=== PATIENT | male | born 1955 | race Caucasian/White ===

== ENCOUNTER 2021-01-23 23:02 | Inpatient (IN) | payer OTHER, SELFPAY ==
[2021-01-24 01:24] VITALS: BMI 23.1
[2021-01-24] MEDS ORDERED: Acetaminophen 650 MG Suppository PR PRN (01:50)
[2021-01-24] MEDS ORDERED: Ondansetron PF 4 MG/2 ML Vial IVP PRN (01:50)
[2021-01-24] MEDS ORDERED: Acetaminophen 325 MG TAB PO PRN (01:50)
[2021-01-24] MEDS ORDERED: Ondansetron ODT 4 MG TAB PO PRN (01:50)
[2021-01-24] MEDS: Morphine 4 MG/ML VIAL SLOW IVP PRN ×4 (02:07→19:33)
[2021-01-24 05:27] LABS: #Basophils 0.1 thou/uL (0.0-0.2); #Eosinphils 0.3 thou/uL (0.0-0.7); #Lymphocytes 2.6 thou/uL (1.20-3.40); #Monocytes 0.7 thou/uL (0.11-0.59); #Neutrophils 6.6 thou/uL (1.40-6.50); %Basophils 0.7 % (0.0-1.0); %Eosinophils 3.3 % (0.0-10.0); %Lymphocytes 25.6 % (21.0-51.0); %Monocytes 6.9 % (0.0-10.0); %Neutrophils 63.6 % (42.0-75.0); Hemoglobin 12.9 g/dL (14.0-18.0); Mean Corpuscular Hemoglobin 31.5 pg (27.0-31.0); Mean Corpuscular Volume 95.5 fL (78.0-98.0); Mean Platelet Volume 6.6 fL (7.4-10.4); Platelet Count 334 thou/uL (130-400); RBC Distribution Width 11.3 % (11.5-14.5); Red Blood Cell (RBC) Count 4.08 mill/uL (4.70-6.10); White Blood Cell (WBC) Count 10.3 thou/uL (4.8-10.8)
[2021-01-24 05:51] LABS: Anion Gap 11 mmol/L (10-20); BUN (Urea Nitrogen) 9 mg/dL (8.4-25.7); Calc. Creatinine Clearance 100 mL/min (70-130); Calcium 9.3 mg/dL (7.8-10.44); Carbon Dioxide 22 mmol/L (23-31); Chloride 105 mmol/L (98-107); Glucose 84 mg/dL (80-115); Potassium 4.1 mmol/L (3.5-5.1); Sodium 134 mmol/L (136-145)
[2021-01-24] MEDS ORDERED: Nitroglycerin 0.4 MG TAB (25 Tab Bottle) SL PRN (08:23)
[2021-01-24] MEDS: Tamsulosin HCl 0.4 MG CAP PO SCH (08:56)
[2021-01-24] MEDS: Aspirin Chewable 81 MG TAB PO SCH (08:56)
[2021-01-24] MEDS: Lisinopril 5 MG TAB PO SCH (10:17)
[2021-01-24] MEDS: TICAGRELOR 90 MG TABLET PO SCH ×2 (10:17→20:37)
[2021-01-24] MEDS ORDERED: Heparin 5,000 UNITS/ML VIAL ONE (12:12)
[2021-01-24] MEDS ORDERED: Protamine Sulfate 50 MG/5 ML VIAL ONE (12:12)
[2021-01-24] MEDS ORDERED: Albumin 5% 0 ML ONE (12:24)
[2021-01-24] MEDS ORDERED: Fentanyl 250 MCG/5 ML VIAL ONE (12:33)
[2021-01-24] MEDS ORDERED: Dexamethasone 20 MG/5 ML VIAL ONE (13:07)
[2021-01-24] MEDS ORDERED: Ondansetron PF 4 MG/2 ML Vial ONE (13:07)
[2021-01-24] MEDS ORDERED: ePHEDrine 50 MG/ML VIAL ONE (13:07)
[2021-01-24] MEDS ORDERED: Bupivacaine PF 0.5% 30 ML VIAL ONE (13:25)
[2021-01-24] MEDS ORDERED: EPINEPHrine 1 MG/ML AMP ONE (13:25)
[2021-01-24] MEDS ORDERED: Fentanyl 100 MCG/2 ML VIAL SLOW IVP PRN (14:01)
[2021-01-24] MEDS ORDERED: traMADol HCl 50 MG TAB PO PRN (14:01)
[2021-01-24] MEDS ORDERED: HYDROmorphone 2 MG/ML VIAL SLOW IVP PRN (14:14)
[2021-01-24] MEDS ORDERED: Ondansetron HCl/PF 4 MG/2 ML Vial IVP PRN (14:14)
[2021-01-24] MEDS ORDERED: Promethazine HCl 25 MG/ML VIAL IVPB PRN (14:14)
[2021-01-24] MEDS ORDERED: Promethazine HCl 25 MG/ML VIAL IM PRN (14:14)
[2021-01-24] MEDS ORDERED: Fentanyl 100 MCG/2 ML VIAL ONE (14:21)
[2021-01-24] MEDS ORDERED: HYDROmorphone 0.5 MG/0.5 ML SYRINGE ONE (14:22)
[2021-01-24] MEDS ORDERED: Atorvastatin Calcium 40 MG TAB PO SCH (21:00)
[2021-01-25] MEDS: Morphine 4 MG/ML VIAL SLOW IVP PRN ×2 (01:14→05:06)
[2021-01-25] MEDS: Aspirin Chewable 81 MG TAB PO SCH (09:48)
[2021-01-25] MEDS: Tamsulosin HCl 0.4 MG CAP PO SCH (09:48)
[2021-01-25] MEDS: TICAGRELOR 90 MG TABLET PO SCH (09:49)
[2021-01-25] MEDS: Lisinopril 5 MG TAB PO SCH (10:26)
[2021-01-25 11:34] VITALS: BP 118/60; TEMP 98.2
[2021-01-27] MEDS ORDERED: FLU VACC QS2021-22(6MOS UP)/PF 60 MCG/0.5 ML SYRINGE IM ONE (09:00)
== END 2021-01-25 13:50 | disposition home or self-care (01) | DRG 254 ==
LOC: 2NO 01-24 00:13
PROVIDERS: ADMIT Student in an Organized Health Care Education/Training Program; ATTEND Internal Medicine
PROC: 04QK0ZZ Repair Right Femoral Artery, Open Approach (ICD-10-PCS; principal; 2021-01-24)
DX: I72.4 Aneurysm of artery of lower extremity (principal); Z20.822 Contact with and (suspected) exposure to COVID-19; I10 Essential (primary) hypertension; E78.5 Hyperlipidemia, unspecified; I25.10 Atherosclerotic heart disease of native coronary artery without angina pectoris; F17.210 Nicotine dependence, cigarettes, uncomplicated; Z79.899 Other long term (current) drug therapy; Z79.82 Long term (current) use of aspirin; Z95.5 Presence of coronary angioplasty implant and graft
CPT/HCPCS: 36415; 80048; 85025; J0171; J0690; J1100; J1170; J1644; J2270; J2405; J2720; J3010; J3490; P9045; S0020